=== PATIENT | male | born 1995 | race Caucasian/White ===

== ENCOUNTER 2024-11-13 10:15 | Emergency (ER) | payer MEDICAID, OTHER ==
[~2024-11-13] VITALS: Ht 175.3 cm; Wt 77.0 kg
[2024-11-13 10:19] VITALS: O2SAT 100
[2024-11-13] MEDS ORDERED: CEFEPIME 2GM IN DEXT 5% 100ML IV STA (10:55)
[2024-11-13] MEDS ORDERED: VANCOMYCIN 1000MG/250ML 250 ML IV STA ×2 (10:55)
[2024-11-13] MEDS ORDERED: CEFEPIME 2GM/50ML DUPLEX 50 ML IV ONE (11:30)
[2024-11-13 12:09] LABS: BASOPHILS % 0.6 % (0.0-2.0); EOSINOPHILS % 5.7 % (0.0-5.0); HEMATOCRIT. 42.4 % (42.0-52.0); HEMOGLOBIN. 14.2 g/dL (14.0-18.0); LYMPHOCYTES % 26.9 % (20.0-50.0); MEAN CORPUSCULAR HEMOGLOBIN 30.2 pg (28.0-32.0); MEAN CORPUSCULAR HGB CONC 33.5 g/dL (31.0-37.0); MEAN CORPUSCULAR VOLUME 90.2 fL (80.0-94.0); MEAN PLATELET VOLUME 9.2 fl (7.4-10.4); MONOCYTES % 8.3 % (2.0-8.0); NEUTROPHILS % 58.5 % (40.0-76.0); PLATELET 232 x1000/uL (130-400); RED CELL DISTRIBUTION WIDTH 13.9 % (11.6-14.6); WHITE BLOOD COUNT 6.3 x1000/uL (4.5-11.0)
[2024-11-13 12:15] LABS: CHLORIDE 108 mEq/L (98-107); POTASSIUM 3.9 mEq/L (3.5-5.1); SODIUM 139 mEq/L (136-145)
[2024-11-13 12:16] LABS: CALCIUM 9.6 mg/dL (8.7-10.4); CARBON DIOXIDE 24 mEq/L (21-32)
[2024-11-13 12:21] LABS: CREATININE 0.9 mg/dL (0.6-1.3); GLUCOSE 106 mg/dL (70-105); UREA NITROGEN BLOOD 11 mg/dL (9-23)
[2024-11-13 12:23] LABS: ALANINE AMINOTRANSFERASE 14 IU/L (10-49); ALBUMIN 4.5 g/dL (3.2-4.8); ASPARTATE AMINOTRANSFERASE 8 IU/L (<34); BILIRUBIN TOTAL 0.5 mg/dL (0.1-1.0); PROTEIN TOTAL 7.1 g/dL (6.0-8.3)
[2024-11-13 15:17] VITALS: BP 139/92; PULSE 93; RESP 16; TEMP 36.83628; O2SAT 98
== END 2024-11-13 15:38 | disposition short-term general hospital (02) ==
LOC: ER 10:34 → EDBEDREQTM 13:23 → EDBEDREQ 13:23 → ER 15:38
DX: L08.89 Other specified local infections of the skin and subcutaneous tissue (principal); Z98.890 Other specified postprocedural states
CPT/HCPCS: 99285; 80053; 85025; 87040; 36415; 73562; 73590; J0692

== ENCOUNTER 2024-12-14 20:38 | Emergency (ER) | payer OTHER ==
[~2024-12-14] VITALS: Ht 170.2 cm; Wt 70.0 kg
[2024-12-14 20:50] VITALS: O2SAT 98
[2024-12-14] MEDS: SODIUM CHLORIDE 0.9% (SEPSIS BOLUS) IV ONE (22:15)
[2024-12-14] MEDS ORDERED: VANCOMYCIN 1.25GM/250ML 250 ML IV SCH (22:30)
[2024-12-14 22:44] LABS: HEMATOCRIT. 41.8 % (42.0-52.0); MEAN CORPUSCULAR HEMOGLOBIN 30.1 pg (28.0-32.0); MEAN CORPUSCULAR HGB CONC 33.5 g/dL (31.0-37.0); MEAN CORPUSCULAR VOLUME 89.8 fL (80.0-94.0); MEAN PLATELET VOLUME 9.5 fl (7.4-10.4); PLATELET 83 x1000/uL (130-400); RED BLOOD CELL COUNT 4.66 mill/uL (4.7-6.1); RED CELL DISTRIBUTION WIDTH 13.9 % (11.6-14.6); WHITE BLOOD COUNT 6.4 x1000/uL (4.5-11.0)
[2024-12-14 22:51] LABS: DIFFERENTIAL COMMENT 1
[2024-12-14] MEDS: PIPERACILLIN/TAZO 3.375G/50ML 50 ML IV ONE (22:51)
[2024-12-14 22:55] LABS: CHLORIDE 106 mEq/L (98-107); POTASSIUM 3.1 mEq/L (3.5-5.1); SODIUM 140 mEq/L (136-145)
[2024-12-14 22:56] LABS: CALCIUM 9.2 mg/dL (8.7-10.4); CARBON DIOXIDE 23 mEq/L (21-32)
[2024-12-14 22:57] LABS: LACTIC ACID 2.7 mmol/L (0.4-2.0)
[2024-12-14 23:01] LABS: CREATININE 1.2 mg/dL (0.6-1.3); GLUCOSE 117 mg/dL (70-105); UREA NITROGEN BLOOD 9 mg/dL (9-23)
[2024-12-14 23:02] LABS: TROPONIN I HIGH SENSITIVITY 16 ng/L (3.0-53)
[2024-12-14 23:04] LABS: INR 1.2; PARTIAL THROMBOPLASTIN TIME 32.6 sec (23.4-31.0); PROTHROMBIN TIME 12.4 sec (9.6-11.0)
[2024-12-14 23:11] LABS: PLATELET ESTIMATE DECREASED
[2024-12-14] MEDS: VANCOMYCIN 1.25GM PMX (XELLIA) 250 ML IV NR (23:17)
[2024-12-15 01:10] LABS: CLARITY URINE CLEAR (CLEAR); COLOR URINE YELLOW (YELLOW); GLUCOSE URINE NEGATIVE (NEGATIVE); KETONES URINE NEGATIVE (NEGATIVE); LEUKOCYTE ESTERASE URINE NEGATIVE (NEGATIVE); NITRITE URINE NEGATIVE (NEGATIVE); OCCULT BLOOD URINE TRACE (NEGATIVE); PH URINE 5.5 (4.5-8.0); PROTEIN URINE TRACE (NEGATIVE)
[2024-12-15] MEDS: POTASSIUM CHLORIDE 20MEQ/PACKET PO NR (02:00)
[2024-12-15 02:10] LABS: WBC URINE 0-2 /hpf (0-2)
[2024-12-15 02:11] LABS: BACTERIA URINE NONE SEEN; RBC URINE 0-2 /hpf (0-2); SQUAMOUS EPITHELIAL CELL URINE NONE SEEN /lpf (RARE/1+)
[2024-12-15 02:23] VITALS: BP 100/50; PULSE 113; RESP 20; TEMP 37.2; O2SAT 97
== END 2024-12-15 02:53 | disposition short-term general hospital (02) ==
LOC: ER 20:38
DX: T81.40XA Infection following a procedure, unspecified, initial encounter (principal); A41.9 Sepsis, unspecified organism; R65.20 Severe sepsis without septic shock; Z98.890 Other specified postprocedural states; E87.6 Hypokalemia; X58.XXXA Exposure to other specified factors, initial encounter; Y93.89 Activity, other specified; Y92.89 Other specified places as the place of occurrence of the external cause; Y99.8 Other external cause status
CPT/HCPCS: 80048; 81003; 83605 ×2; 85025; 85610; 85730; 87040; 87086; 87186; 84484; 87077; 36415; 84145; 71045; 73560; 93005; 96368; 96365; 96366; 99291; J3370; J2543; J7030; Z7610